=== PATIENT | male | born 1935 | race Caucasian/White ===

== ENCOUNTER 2021-08-18 08:03 | Outpatient (REF) | payer MEDICARE, OTHER, SELFPAY ==
[2021-08-18 11:45] LABS: Alanine Aminotransferase 22 U/L (0-40); Albumin Level 4.3 g/dL (3.5-5.0); Alkaline Phosphatase 57 U/L (39-117); Anion Gap 13 (12-20); Aspartate Amino Transferase 26 U/L (5-37); Bilirubin Total 0.4 mg/dL (0.0-1.0); Blood Urea Nitrogen 18 mg/dL (9-16); Calcium 9.8 mg/dL (8.4-10.2); Carbon Dioxide 28 mmol/L (22-29); Chloride 109 mmol/L (96-108); Cholesterol 174 mg/dL; Estimated Glomerular Filt Rate 56; Glucose Fasting 103 mg/dL (60-99); HDL Cholesterol 62 mg/dL; LDL Cholesterol Calculated 98 mg/dl; Potassium 5.7 mmol/L (3.3-5.1); Sodium 144 mmol/L (135-145); Total Protein 6.7 g/dL (6.5-8.0); Triglycerides 73 mg/dL
[2021-08-20 05:01] LABS: Lyme Abs Screen <0.90 index
== END 2021-08-18 08:04 | disposition home or self-care (01) ==
LOC: HO.HMGCLDS 08:03
PROVIDERS: PCP Internal Medicine; Visit Provider Nurse Practitioner Family
DX: T14.8XXA Other injury of unspecified body region, initial encounter (principal); W57.XXXA Bitten or stung by nonvenomous insect and other nonvenomous arthropods, initial encounter; Z13.220 Encounter for screening for lipoid disorders; Z13.1 Encounter for screening for diabetes mellitus
CPT/HCPCS: 36415; 80053; 80061; 86617; 86618

== ENCOUNTER 2021-08-19 06:17 | Outpatient (REF) | payer MEDICARE, OTHER, SELFPAY ==
[2021-08-19 12:27] LABS: Blood Urea Nitrogen 20 mg/dL (9-16); Estimated Glomerular Filt Rate > 60; Glucose Random 92 mg/dL (60-115)
[2021-08-19 12:38] LABS: Anion Gap 12 (12-20); Carbon Dioxide 26 mmol/L (22-29); Chloride 110 mmol/L (96-108); Potassium 5.9 mmol/L (3.3-5.1); Sodium 142 mmol/L (135-145)
== END 2021-08-19 06:18 | disposition home or self-care (01) ==
LOC: HO.HMGCLDS 06:17
PROVIDERS: PCP Internal Medicine; Visit Provider Internal Medicine
DX: Z13.89 Encounter for screening for other disorder (principal)
CPT/HCPCS: 36415; 80048

== ENCOUNTER 2021-08-19 18:05 | Emergency (ER) | payer MEDICARE, OTHER, SELFPAY ==
[2021-08-19 19:49] VITALS: BP 143/63; PULSE 60; RESP 20; TEMP 36.7; O2SAT 97; BMI 22.4
[2021-08-19 20:27] LABS: MANUAL DIFF FLAG NO
[2021-08-19 20:34] LABS: Basophils Percent Auto 0.6 % (0-2); Eosinophils Absolute Auto 0.3 X10*3/uL (0.0-0.4); Eosinophils Percent Auto 5.8 % (0-4); Hematocrit 41.8 % (42.0-52.0); Hemoglobin 13.9 g/dl (14.0-18.0); Imm Gran Abs Auto 0.01 X10*3/uL (0.00-0.03); Imm Gran Pct Auto 0.2 % (0.0-0.4); Lymphocytes Absolute Auto 1.8 X10*3/uL (1.2-4.9); Lymphocytes Percent Auto 37.6 % (20-40); Mean Corpuscular HGB Conc 33.3 g/dl (31.0-36.0); Mean Corpuscular Hemoglobin 29.7 pg (27.0-33.0); Mean Corpuscular Volume 89.3 fL (80.0-98.0); Mean Platelet Volume 9.1 fL (9.4-12.4); Monocytes Absolute Auto 0.5 X10*3/uL (0.1-1.2); Monocytes Percent Auto 10.7 % (2-11); Neutrophils Absolute Auto 2.2 x10*3/uL (2.0-8.3); Neutrophils Percent Auto 45.1 % (45-73); Platelet Count 211 X10*3/uL (160-400); Red Blood Count 4.68 X10*6/uL (4.60-5.80); Red Cell Distribution Width 13.4 % (11.0-16.0); White Blood Count 4.8 X10*3/uL (4.8-10.8)
[2021-08-19 20:45] LABS: Anion Gap 12 (12-20); Blood Urea Nitrogen 19 mg/dL (9-16); Calcium 9.6 mg/dL (8.4-10.2); Carbon Dioxide 30 mmol/L (22-29); Chloride 108 mmol/L (96-108); Creatinine Clr Calc Pharmacy 42.3; Estimated Glomerular Filt Rate 58; Glucose Random 105 mg/dL (60-115); Sodium 145 mmol/L (135-145)
[2021-08-19 21:44] VITALS: BP 158/73; PULSE 59; RESP 16; TEMP 36.7; O2SAT 97
--- NOTE | 2021-08-19 22:39 | ED.RECABL ---
HPI - Recheck/Abnormal Lab/Rx General Chief Complaint: Recheck/Abnormal Lab/Rx Stated Complaint: Abnormal labs Time Seen by Provider: 08/19/21 22:39 Source: patient and family () Mode of arrival: ambulatory History of Present Illness HPI narrative: 85-year-old male with history BPH, recurrent major depression is presenting for lab values on consecutive days demonstrating potassium level of 5.7 and 5.9 respectively but otherwise completely asymptomatic denying any chest pain, palpitations, muscle twitching, muscle aches. Related Data Home Medications Medication Instructions Recorded Confirmed ibuprofen 400 mg tablet 400 mg PO TID 07/05/20 07/29/21 Previous Rx's Medication Instructions Recorded sertraline 50 mg tablet 50 mg PO DAILY #90 tab 01/17/21 doxycycline hyclate 100 mg tablet 100 mg PO BID 14 Days #28 tab 07/29/21 Allergies Allergy/AdvReac Type Severity Reaction Status Date / Time No Known Allergies Allergy Unverified 07/29/21 13:35 Review of Systems Review of Systems: Pertinent positives and negatives as stated in HPI 10 point review of systems is otherwise negative. PMFSH Past Medical History Medical History (Updated 08/19/21 @ 22:45 by Alyse Clark MD) Anxiety BPH (benign prostatic hyperplasia) History of alcohol abuse Osteoarthritis of right knee Polymyalgia rheumatica Tick bite of back Surgical History H/O arthroscopy of right knee History of hand surgery Hx of cataract surgery Social History Social History Housing: House Alcohol intake: never Patient Tobacco Use Status: Former Tobacco user Advance Directives: No Advance Directives Information Provided: Yes service: Yes Current occupational status: retired Physical Exam Vital Signs: Vital Signs: Last Vital Signs Temp 98.1 F 08/19/21 21:44 Pulse 59 08/19/21 21:44 Resp 16 08/19/21 21:44 BP 158/73 H 08/19/21 21:44 Pulse Ox 97 08/19/21 21:44 BMI result Body Mass Index 22.4 VITAL SIGNS: Reviewed. GENERAL: Well developed, well nourished, in no acute distress. HEAD: Normocephalic/atraumatic EYES: PERRLA, EOMI OROPHARYNX: no oral lesions noted, posterior pharynx clear NECK: Supple, no adenopathy LUNGS: Normal breath sounds. No adventitious sounds or accessory muscle use. SpO2<97> CARDIOVASCULAR: Regular rate and rhythm without noted murmurs, no JVD or lower extremity edema. ABDOMEN: Soft, non-tender, non-distended with bowel sounds. SKIN: Inspection of the skin reveals no rashes NEUROLOGIC: Alert and oriented x 4. Strength and sensation to light touch were grossly intact x 4, no tremor Course Course Course Narrative: This is an 85-year-old male with no hyperkalemia on re-evaluation here in the emergency room. No evidence that patient is symptomatic and patient denies any history concerning for sources of patient's hyperkalemia other than borderline renal function. Patient has no history of any nausea/vomiting/diarrheal episodes and after discussion regarding pursuing EKG although on clinical exam there is no evidence of irregular heartbeat and patient denies any chest pain/palpitations both the patient and his decline EKG at this time. He was otherwise discharged in stable condition and encouraged to follow-up with his primary care provider for further workup as an outpatient. MDM - Recheck/Abnormal Lab/Rx Lab Data Result diagrams: 08/19/21 20:22 08/19/21 20:22 Labs: Lab Results 08/19/21 08/19/21 Range/Units 20:22 20:22 WBC 4.8 (4.8-10.8) X10*3/uL RBC 4.68 (4.60-5.80) X10*6/uL Hgb 13.9 L (14.0-18.0) g/dl Hct 41.8 L (42.0-52.0) % MCV 89.3 (80.0-98.0) fL MCH 29.7 (27.0-33.0) pg MCHC 33.3 (31.0-36.0) g/dl RDW 13.4 (11.0-16.0) % Plt Count 211 (160-400) X10*3/uL MPV 9.1 L (9.4-12.4) fL Immature Gran % (Auto) 0.2 (0.0-0.4) % Neut % (Auto) 45.1 (45-73) % Lymph % (Auto) 37.6 (20-40) % [place] % (Auto) 10.7 (2-11) % Eos % (Auto) 5.8 H (0-4) % Baso % (Auto) 0.6 (0-2) % Lymph # (Auto) 1.8 (1.2-4.9) X10*3/uL [place] # (Auto) 0.5 (0.1-1.2) X10*3/uL Eos # (Auto) 0.3 (0.0-0.4) X10*3/uL Baso # (Auto) 0.0 (0.0-0.2) X10*3/uL Abs Immat Gran (auto) 0.01 (0.00-0.03) X10*3/uL Absolute Neuts (auto) 2.2 (2.0-8.3) x10*3/uL Absolute Nucleated RBC 0.000 (0.0-0.012) X10*3/uL Nucleated RBC % (auto) 0.0 (0.0-0.2) /100WBC Sodium 145 (135-145) mmol/L Potassium 5.0 (3.3-5.1) mmol/L Chloride 108 (96-108) mmol/L Carbon Dioxide 30 H (22-29) mmol/L Anion Gap 12 (12-20) BUN 19 H (9-16) mg/dL Creatinine 1.19 (0.5-1.4) mg/dL Estim Creat Clear Calc 42.3 Estimated GFR 58 Random Glucose 105 (60-115) mg/dL Calcium 9.6 D (8.4-10.2) mg/dL Discharge Plan Discharge Clinical Impression: History of hyperkalemia Patient Disposition: Home, Self-Care Instructions: Hyperkalemia (ED) Additional Instructions: 1. Resume all home medications as prescribed. 2. Follow-up with your primary care provider on Sunday morning to discuss further outpatient workup and management. Return to the ER for any worsening of symptoms. Prescriptions: No Action sertraline 50 mg tablet 50 mg PO DAILY Qty: 90 RF: 2 ibuprofen 400 mg tablet 400 mg PO TID RF: 0 doxycycline hyclate 100 mg tablet 100 mg PO BID 14 Days Qty: 28 RF: 0 Referrals: Po,Slick Chandler MD [Primary Care Provider] - 2 days (Re-evaluation and further outpatient workup and evaluation for patient's transient episodes hyper kalemia but is otherwise asymptomatic.)
== END 2021-08-19 22:55 | disposition home or self-care (01) ==
PROVIDERS: Emergency Provider Student in an Organized Health Care Education/Training Program; PCP Internal Medicine
DX: R79.89 Other specified abnormal findings of blood chemistry (principal); F33.1 Major depressive disorder, recurrent, moderate; Z87.891 Personal history of nicotine dependence; Z79.899 Other long term (current) drug therapy
CPT/HCPCS: 36415; 80048; 85025; 99283

== ENCOUNTER 2021-08-26 06:37 | Outpatient (REF) | payer MEDICARE, OTHER, SELFPAY ==
[2021-08-26 11:43] LABS: Anion Gap 10 (12-20); Blood Urea Nitrogen 24 mg/dL (9-16); Calcium 9.4 mg/dL (8.4-10.2); Carbon Dioxide 28 mmol/L (22-29); Chloride 109 mmol/L (96-108); Estimated Glomerular Filt Rate 58; Glucose Random 95 mg/dL (60-115); Potassium 4.2 mmol/L (3.3-5.1); Sodium 143 mmol/L (135-145)
== END 2021-08-26 06:38 | disposition home or self-care (01) ==
LOC: HO.HMGCLDS 06:37
PROVIDERS: PCP Internal Medicine; Visit Provider Internal Medicine
DX: E87.5 Hyperkalemia (principal)
CPT/HCPCS: 36415; 80048

== ENCOUNTER 2022-08-01 06:02 | Outpatient (REF) | payer MEDICARE, OTHER, SELFPAY ==
[2022-08-01 11:45] LABS: MANUAL DIFF FLAG NO
[2022-08-01 11:53] LABS: Basophils Percent Auto 0.8 % (0-2); Eosinophils Absolute Auto 0.2 X10*3/uL (0.0-0.4); Eosinophils Percent Auto 3.7 % (0-4); Hematocrit 43.1 % (42.0-52.0); Imm Gran Abs Auto 0.01 X10*3/uL (0.00-0.03); Imm Gran Pct Auto 0.2 % (0.0-0.4); Immature Retic Fraction 8.7 % (2.3-13.4); Lymphocytes Absolute Auto 1.6 X10*3/uL (1.2-4.9); Lymphocytes Percent Auto 31.1 % (20-40); Mean Corpuscular HGB Conc 32.5 g/dl (31.0-36.0); Mean Corpuscular Hemoglobin 29.2 pg (27.0-33.0); Mean Corpuscular Volume 89.8 fL (80.0-98.0); Mean Platelet Volume 9.1 fL (9.4-12.4); Monocytes Absolute Auto 0.5 X10*3/uL (0.1-1.2); Monocytes Percent Auto 10.1 % (2-11); Neutrophils Absolute Auto 2.8 x10*3/uL (2.0-8.3); Neutrophils Percent Auto 54.1 % (45-73); Platelet Count 222 X10*3/uL (160-400); Red Cell Distribution Width 13.3 % (11.0-16.0); Reticulocyte Percent 1.3 % (0.5-1.8); Reticulocytes Absolute 0.064 X10*6/uL (0.026-0.095); White Blood Count 5.2 X10*3/uL (4.8-10.8)
[2022-08-01 12:59] LABS: Folate 15.5 ng/mL (> or = 4.0); Vitamin B12 434 pg/mL (200-900)
[2022-08-01 13:06] LABS: Alanine Aminotransferase 15 U/L (0-40); Albumin Level 4.1 g/dL (3.5-5.0); Alkaline Phosphatase 53 U/L (39-117); Anion Gap 12 (12-20); Aspartate Amino Transferase 20 U/L (5-37); Bilirubin Total 0.5 mg/dL (0.0-1.0); Blood Urea Nitrogen 22 mg/dL (9-16); Calcium 9.4 mg/dL (8.4-10.2); Carbon Dioxide 28 mmol/L (22-29); Chloride 107 mmol/L (96-108); Cholesterol 177 mg/dL; Estimated Glomerular Filt Rate 55; Ferritin 140 ng/mL (20-250); Glucose Random 92 mg/dL (60-115); HDL Cholesterol 56 mg/dL; Iron 53 mcg/dL (45-160); LDL Cholesterol Calculated 108 mg/dl; Percent Iron Saturation 18 % (15-50); Potassium 4.5 mmol/L (3.3-5.1); Sodium 142 mmol/L (135-145); Thyroid Stimulating Hormone 1.99 uIU/mL (0.32-4.0); Total Iron Binding Capacity 292 mcg/dL (228-428); Total Protein 6.5 g/dL (6.5-8.0); Triglycerides 66 mg/dL; Unsaturated Iron Binding 239 ug/dL
== END 2022-08-01 06:03 | disposition home or self-care (01) ==
LOC: HO.HMGCLDS 06:02
PROVIDERS: PCP Internal Medicine; Visit Provider Internal Medicine
DX: F33.9 Major depressive disorder, recurrent, unspecified (principal); E78.00 Pure hypercholesterolemia, unspecified
CPT/HCPCS: 36415; 80053; 80061; 82607; 82728; 82746; 83540; 84439; 84443; 85025; 85045

== ENCOUNTER 2023-01-19 06:04 | Outpatient (REF) | payer MEDICARE, OTHER, SELFPAY ==
[2023-01-19 11:56] LABS: Anion Gap 11 (12-20); Blood Urea Nitrogen 23 mg/dL (9-16); Calcium 9.4 mg/dL (8.4-10.2); Carbon Dioxide 29 mmol/L (22-29); Chloride 108 mmol/L (96-108); Estimated Glomerular Filt Rate 60; Glucose Fasting 91 mg/dL (60-99); Sodium 143 mmol/L (135-145)
== END 2023-01-19 06:05 | disposition home or self-care (01) ==
LOC: HO.HMGCLDS 06:04
PROVIDERS: PCP Internal Medicine; Visit Provider Nurse Practitioner Family
DX: Z13.1 Encounter for screening for diabetes mellitus (principal)
CPT/HCPCS: 36415; 80048

== ENCOUNTER 2023-07-19 08:21 | Outpatient (AMB) | payer MEDICARE, OTHER, SELFPAY ==
[2023-07-19 08:23] VITALS: BP 130/78; PULSE 64; O2SAT 96; BMI 23.5
--- NOTE | 2023-07-19 08:23 | A.OFFPC_ITS ---
Vital Signs 07/19/23 08:23 Height 5 ft 7 in Weight 150 lb BMI 23.5 BP 130/78 Blood Pressure Location Lt brachial Position Sitting Pulse 64 Pulse Source Pulse Oximeter Pulse Oximetry (%) 96 Oxygen Delivery Method Room Air Intake Visit Reasons: hypothyroid Allergies No Known Allergies Allergy (Verified 07/19/23 08:24) Tobacco use date assessed: 07/19/23 Fall risk assessment: No Falls in past year Last assessed Fall Risk: 07/19/23 Dental Screening Dental Screen Date: 07/19/23 Did you have a dental visit in the last 12 months?: Yes Did you have a dental problem in the last 6 months where you did not have access to dental care?: No Was dental information given to patient?: Patient has dentist HPI hypothyroid HPI Details 87-year-old male with a history of BPH a nd major depression last seen in July 2022 coming in for follow-up. Review of the notes has seen orthopedics in June 2023 for right knee MCL sprain status post total knee arthroplasty 2015 few months causing pain medial aspect of the denies any injury diagnosis of MCL instability option of bracing physical therapy or anti- inflammatory semi rigid/rigid orthosis advised. Patient also follows up with Dermatology actinic keratosis.. Patient did see the nurse practitioner in January 2023 for annual well visit had otitis media treated with Augmentin [facility] Medical History (Updated 07/19/23 @ 08:43 by Slick Cassidy MD) Polymyalgia rheumatica Osteoarthritis of right knee History of alcohol abuse BPH (benign prostatic hyperplasia) Anxiety Tick bite of back Surgical History History of colonoscopy History of hand surgery Hx of cataract surgery H/O arthroscopy of right knee Social History Housing: House Alcohol intake: never Patient Tobacco Use Status: Former Tobacco user Tobacco use type: Cigarette e-Cigarette/Vaping Use: Never Used Second Hand Smoke Exposure: No service: Yes Current occupational status: retired Cognitive needs: No Hearing needs: No Vision needs: Yes Questionnaire PHQ-9 Over the last 2 weeks, how often have you been bothered by any of the following problems? 1. Little interest or pleasure in doing things: not at all 2. Feeling down, depressed, or hopeless: not at all 3. Trouble falling or staying asleep, or sleeping too much: not at all 4. Feeling tired or having little energy: not at all 5. Poor appetite or overeating: not at all 6. Feeling bad about yourself - or that you are a failure or have let yourself or your family down: not at all 7. Trouble concentrating on things, such as reading the newspaper or watching television: not at all 8. Moving or speaking so slowly that other people could have noticed. Or the opposite - being so fidgety or restless that you have been moving around a lot more than usual: not at all 9. Thoughts that you would be better off or of hurting yourself in some way: not at all Total score: 0 Depression Screening Interpretation: Negative Depression Screening Done: Yes 95743 - PHQ-9 Billing: Yes Source: Developed by Drs. Aki Nash, Lazara Arellano, Liu Lilly and colleagues, with an educational isabel from [employer]. Thrive Questionnaire Date Thrive assessed: 07/19/23 I am a: Patient What is your living situation today?: I have a steady place to live Within the past 12 months, did the food you bought not last and you didn't have the money to get more?: Never true Within the past 12 months, did you worry whether your food would run out before you got money to buy more?: Never true Do you have trouble paying for medicines?: No Do you have trouble getting transportation to medical appointments?: No Do you have trouble paying your heating and electricity bill?: No Do you have trouble taking care of your child, family member or friend?: No Do you have trouble with day-to-day activities such as bathing, preparing meals, shopping, managing finances, etc.?: No Are you currently unemployed and looking for a job?: No Are you interested in more education?: No Currently or been in a relationship where the following occur: no concerns reported AUDIT C Alcohol Use Questionnaire (AUDIT-C) 1. How often do you have a drink containing alcohol?: Never 3. How often do you have six or more drinks on one occasion?: Never Total Score: 0 Score Reviewed/Action Taken: No LENA-7 AMB Questionnaire LENA-7 Date LENA - 7 assessed: 01/16/23 Source: Developed by Drs. Aki Nash, Lazara Arellano, Liu Lilly and colleagues, with an educational isabel from [employer]. Physical exam (Primary Care) Vital Signs: Last Vital Signs Pulse 64 07/19/23 08:23 BP 130/78 07/19/23 08:23 Pulse Ox 96 07/19/23 08:23 Oxygen Delivery Method Room Air 07/19/23 08:23 BMI result Body Mass Index 23.5 Tobacco/Smoking Status: Tobacco use Status Tobacco use date assessed 07/19/23 07/19/23 08:28 Patient Tobacco Use Status Former Tobacco user 07/19/23 08:28 Tobacco use type Cigarette 07/19/23 08:28 e-Cigarette/Vaping Use Never Used 07/19/23 08:28 PHQ-9: PHQ-9 Score PHQ-9: Total score 0 07/19/23 08:28 Depression Screening Interpretation: Negative Thrive Assessment: Date of Thrive Assessment Date Thrive assessed 07/19/23 07/19/23 08:28 Currently or been in a relationship where the following occur: no concerns reported Const General: alert; No acute distress Eyes Conjunctivae: conjunctivae normal Resp Auscultation: clear to auscultation bilaterally Cardio Rate: regular rate Rhythm: regular rhythm GI Inspection: Yes normal to inspection Extrem General: Yes normal to inspection and No edema Assessment and Plan Assessment & Plan (1) Recurrent major depression: Comment: decline counselling 07/2022 Code(s): F33.9 - Major depressive disorder, recurrent, unspecified Plan: Continue with present medication (2) BPH (benign prostatic hyperplasia): Code(s): N40.0 - Benign prostatic hyperplasia without lower urinary tract symptoms Plan: Stable (3) Right knee pain: Code(s): M25.561 - Pain in right knee Plan: Patient follows up with orthopedics and brace as well as exercises advised (4) Actinic keratosis: Code(s): L57.0 - Actinic keratosis Plan: Patient follows up with Dermatology and had nitrogen treatment Orders: Orders Complete Blood Count Auto Diff Today F33.9 - Major depressive disorder, recurren t, unspecified Comprehensive Met. Panel Today F33.9 - Major depressive disorder, recurrent, unspecified Lipid Panel Today E78.00 - Pure hypercholesterolemia, unspecified, F33.9 - Major depressive disorder, recurrent, unspecified Free T4 (Free Thyroxine) Today F33.9 - Major depressive disorder, recurrent, unspecified Thyroid Stimulating Hormone Today F33.9 - Major depressive disorder, recurrent, unspecified Vitamin B12 and Folate Today F33.9 - Major depressive disorder, recurrent, unspecified Coding Level of Care Code Est Pt Level 4 (20888) Diagnoses Recurrent major depression F33.9 BPH (benign prostatic hyperplasia) N40.0 Right knee pain M25.561 Actinic keratosis L57.0
== END 2023-07-19 08:54 | disposition home or self-care (01) ==
LOC: HO.HMGH 08:21
PROVIDERS: PCP Internal Medicine; Visit Provider Internal Medicine
DX: F33.9 Major depressive disorder, recurrent, unspecified (principal); N40.0 Benign prostatic hyperplasia without lower urinary tract symptoms; M25.561 Pain in right knee; L57.0 Actinic keratosis
CPT/HCPCS: 99214

== ENCOUNTER 2023-07-20 06:07 | Outpatient (REF) | payer MEDICARE, OTHER, SELFPAY ==
[2023-07-20 11:27] LABS: MANUAL DIFF FLAG NO
[2023-07-20 11:39] LABS: Basophils Percent Auto 0.9 % (0-2); Eosinophils Absolute Auto 0.2 X10*3/uL (0.0-0.4); Eosinophils Percent Auto 4.3 % (0-4); Hematocrit 43.8 % (42.0-52.0); Hemoglobin 14.2 g/dl (14.0-18.0); Imm Gran Abs Auto 0.02 X10*3/uL (0.00-0.03); Imm Gran Pct Auto 0.4 % (0.0-0.4); Lymphocytes Absolute Auto 1.6 X10*3/uL (1.2-4.9); Lymphocytes Percent Auto 35.2 % (20-40); Mean Corpuscular HGB Conc 32.4 g/dl (31.0-36.0); Mean Corpuscular Hemoglobin 28.8 pg (27.0-33.0); Mean Corpuscular Volume 88.8 fL (80.0-98.0); Mean Platelet Volume 9.3 fL (9.4-12.4); Monocytes Absolute Auto 0.5 X10*3/uL (0.1-1.2); Monocytes Percent Auto 10.1 % (2-11); Neutrophils Absolute Auto 2.3 x10*3/uL (2.0-8.3); Neutrophils Percent Auto 49.1 % (45-73); Platelet Count 206 X10*3/uL (160-400); Red Blood Count 4.93 X10*6/uL (4.60-5.80); Red Cell Distribution Width 13.6 % (11.0-16.0); White Blood Count 4.7 X10*3/uL (4.8-10.8)
[2023-07-20 12:30] LABS: Alanine Aminotransferase 17 U/L (0-40); Albumin Level 4.1 g/dL (3.5-5.0); Alkaline Phosphatase 60 U/L (39-117); Anion Gap 9 (12-20); Aspartate Amino Transferase 22 U/L (5-37); Bilirubin Total 0.3 mg/dL (0.0-1.0); Blood Urea Nitrogen 19 mg/dL (9-16); Calcium 8.9 mg/dL (8.4-10.2); Carbon Dioxide 28 mmol/L (22-29); Chloride 109 mmol/L (96-108); Cholesterol 160 mg/dL (<200); Estimated Glomerular Filt Rate > 60; Free T4 (Free Thyroxine) 0.78 ng/dL (0.71-1.85); Glucose Random 93 mg/dL (60-115); HDL Cholesterol 59 mg/dL (>40); LDL Cholesterol Calculated 91 mg/dL (<100); Potassium 4.3 mmol/L (3.3-5.1); Sodium 142 mmol/L (135-145); Thyroid Stimulating Hormone 2.06 uIU/mL (0.32-4.0); Total Protein 6.6 g/dL (6.5-8.0); Triglycerides 53 mg/dL (<150)
[2023-07-20 12:34] LABS: Folate 13.2 ng/mL (> or = 4.0); Vitamin B12 482 pg/mL (200-900)
== END 2023-07-20 06:08 | disposition home or self-care (01) ==
LOC: HO.HMGCLDS 06:07
PROVIDERS: PCP Internal Medicine; Visit Provider Internal Medicine
DX: F33.9 Major depressive disorder, recurrent, unspecified (principal); E78.00 Pure hypercholesterolemia, unspecified
CPT/HCPCS: 36415; 80053; 80061; 82607; 82746; 84439; 84443; 85025

== ENCOUNTER 2024-01-21 10:13 | Outpatient (AMB) | payer MEDICARE, OTHER, SELFPAY ==
[2024-01-21 10:14] VITALS: BP 140/72; PULSE 77; O2SAT 97; BMI 22.7
--- NOTE | 2024-01-21 10:14 | AM.OFFVISMDC ---
Intake Vital Signs 01/21/24 10:14 01/21/24 10:31 Height 5 ft 7 in Weight 145 lb BMI 22.7 BP 140/72 H 134/60 Blood Pressure Location Lt brachial Lt brachial Position Sitting Sitting Pulse 77 Pulse Source Pulse Oximeter Pulse Oximetry (%) 97 Oxygen Delivery Method Room Air Intake Visit Reasons: SWV [id number], Trigger Finger Allergies No Known Allergies Allergy (Verified 01/21/24 10:14) Medication List - Last Reconciled 01/21/24 by Slick Cassidy MD aspirin 81 mg PO DAILY sertraline 50 mg PO DAILY HPI SWV [id number] HPI Details 88-year-old male with a history of recurrent major depression BPH coming in for an annual well visit. Last seen in July 2023. [facility] Medical History (Updated 01/21/24 @ 10:27 by Slick Cassidy MD) Polymyalgia rheumatica Osteoarthritis of right knee History of alcohol abuse BPH (benign prostatic hyperplasia) Anxiety Tick bite of back Surgical History History of colonoscopy History of hand surgery Hx of cataract surgery H/O arthroscopy of right knee Social History Housing: House Alcohol intake: never Patient Tobacco Use Status: Former Tobacco user Tobacco use type: Cigarette e-Cigarette/Vaping Use: Never Used Second Hand Smoke Exposure: No service: Yes Current occupational status: retired Cognitive needs: No Hearing needs: No Vision needs: Yes Questionnaire Medicare Wellness Checkup What is your age?: 80 or older What gender do you identify with?: male During the past 4 weeks, how much have you been bothered by emotional problems such as feeling anxious, depressed, irritable, sad or downhearted, and blue?: not at all During the past 4 weeks, has your physical & emotional health limited your social activities with family, friends, neighbors, or groups?: not at all During the past 4 weeks, how much bodily pain have you generally had?: no pain During the past 4 weeks, was someone available to help you if you needed & wanted help?: yes, as much as I wanted During the past 4 weeks, what was the hardest physical activity you could do for at least 2 minutes?: very heavy Can you get to places out of walking distance without help? (For eg., can you travel alone on buses, taxis or drive your car?): Yes Can you go shopping for groceries or clothes without someone's help?: Yes Can you prepare your own meals?: Yes Can you do your housework without help?: Yes Because of any health problems, do you need the help of another person with your personal care needs such as eating, bathing, dressing or getting around the house?: No Can you handle your own money without help?: Yes During the past 4 weeks, how would you rate your health in general?: very good During the past 4 weeks how have things been going for you?: very well; could hardly better Are you having difficulties driving your car?: no Do you always fasten your seat belt when you are in a car?: yes, usually During past 4 weeks, have you been bothered by the following: never: Sexual problems?, Trouble eating well?, Teeth or denture problems?, Problems using the telephone? and Tiredness or fatigue? and seldom: Falling or dizzy when standing up Have you fallen 2 or more times in the past year?: No Are you afraid of falling?: No Are you a smoker?: no During the past 4 weeks, how many drinks of wine, beer, or other alcoholic beverages did you have?: no alcohol at all Do you exercise for about 20 minutes 3 or more times a week?: yes, most of the time Have you been given information to help with the following?: no: Hazards in your house that might hurt you? and no: Keeping track of your medications? How often do you have trouble taking medicines the way you have been told to take them?: I always take medicine as prescribed How confident are you that you can control & manage most of your health problems?: very confident What is your race?: White PHQ-9 Over the last 2 weeks, how often have you been bothered by any of the following problems? 1. Little interest or pleasure in doing things: not at all 2. Feeling down, depressed, or hopeless: not at all 3. Trouble falling or staying asleep, or sleeping too much: not at all 4. Feeling tired or having little energy: not at all 5. Poor appetite or overeating: not at all 6. Feeling bad about yourself - or that you are a failure or have let yourself or your family down: not at all 7. Trouble concentrating on things, such as reading the newspaper or watching television: not at all 8. Moving or speaking so slowly that other people could have noticed. Or the opposite - being so fidgety or restless that you have been moving around a lot more than usual: not at all 9. Thoughts that you would be better off or of hurting yourself in some way: not at all Total score: 0 Depression Screening Interpretation: Negative Depression Screening Done: Yes 69395 - PHQ-9 Billing: Yes Source: Developed by Drs. Aki Nash, Lazara Arellano, Liu Lilly and colleagues, with an educational isabel from [employer]. Thrive Questionnaire Date Thrive assessed: 01/21/24 I am a: Patient What is your living situation today?: I have a steady place to live Within the past 12 months, did the food you bought not last and you didn't have the money to get more?: Never true Within the past 12 months, did you worry whether your food would run out before you got money to buy more?: Never true Do you have trouble paying for medicines?: No Do you have trouble getting transportation to medical appointments?: No Do you have trouble paying your heating and electricity bill?: No Do you have trouble taking care of your child, family member or friend?: No Do you have trouble with day-to-day activities such as bathing, preparing meals, shopping, managing finances, etc.?: No Are you currently unemployed and looking for a job?: No Are you interested in more education?: No Currently or been in a relationship where the following occur: no concerns reported THRIVE Score: 0 LENA-7 AMB Questionnaire LENA-7 Date LENA - 7 assessed: 01/21/24 Feeling nervous, anxious, or on edge: 0 = Not at all Not being able to stop or control worryin = Not at all Worrying too much about different things: 0 = Not at all Trouble relaxin = Not at all Being so restless that it is hard to sit still: 0 = Not at all Becoming easily annoyed or irritable: 0 = Not at all Feeling afraid as if something awful might happen: 0 = Not at all Total LENA-7 score (0-4 normal; 5-9 mild; 10-14 moderate; 15-21 severe): 0 Source: Developed by Drs. Aki Nash, Lazara Arellano, Liu Lilly and colleagues, with an educational isabel from [employer]. Review of Systems Const Denies poor appetite and Denies weakness Eyes Denies no additional complaints ENT Reports Normal hearing present, Denies dizziness, Denies nasal congestion, Denies tinnitus and Denies sore throat Card Denies chest pain, Denies syncope, Denies rapid heart rate and Denies dyspnea Resp Denies cough and Denies dyspnea GI Denies change in stool character, Reports constipation, Denies diarrhea, Denies nausea and Denies vomiting Denies dysuria and Denies urinary frequency Neuro Reports Normal hearing present, Denies confusion, Denies dizziness, Denies syncope and Denies weakness Psych Denies confusion Physical Exam Vital Signs: Last Vital Signs Pulse 77 01/21/24 10:14 BP 134/60 01/21/24 10:31 Pulse Ox 97 01/21/24 10:14 Oxygen Delivery Method Room Air 01/21/24 10:14 BMI result Body Mass Index 22.7 Const General: No confusion Orientation/consciousness: No confusion HEENT Other: mild eimpacted cerumen Head: Yes normocephalic Ears: external ears normal Face and sinus: Yes normal facial exam Mouth: moist mucous membranes Throat: Yes tonsils normal Eyes Conjunctivae: conjunctivae normal Pupils: Equal, round and reactive pupils present and Pupil accommodation reflex normal Direct Ophthalmoscopy: normal light reflex Neck Neck: No lymphadenopathy Thyroid: Thyroid normal Chest Chest palpation & inspection: normal inspection of the chest Resp Effort & Inspection: normal respiratory effort and no audible wheezes Auscultation: clear to auscultation bilaterally, no crackles, no wheezes and lung sounds not diminished Cardio Rate: regular rate Rhythm: regular rhythm Peripheral pulses: radial pulses present and dorsalis pedis present GI Other: guaiac negative prostate mild enlarged Palpation (GI): no masses Auscultation: normal bowel sounds and normoactive bowel sounds Male General Exam: Yes normal external exam Skin General skin exam: no rashes or lesions noted Rashes: no rashes Neuro General: No confusion Cranial nerves: Yes Equal, round and reactive pupils present and Yes Normal hearing present Cognition (Neuro): normal cognition Gait exam (Neuro): Normal gait present Motor exam (neuro): 5/5 motor strength present throughout Deep tendon reflexes (DTR's): Right brachioradialis reflex intensity grade: 2+, Left brachioradialis reflex intensity grade: 2+, Right patellar reflex intensity grade: 2+ and Left patellar reflex intensity grade: 2+ Extrem General: No edema Immunizations tetanus-diphtheria toxoids-Td 2 Lf unit-2 Lf unit/0.5 mL IM suspension Performing Provider: Slick Cassidy MD Performing [facility] [place] [facility] Administered by: EDI Booth on 01/21/24 10:54 Dose Route Admin Location Dispensed Lot Number Expiration Date [employer] 0.5 mL IM Left Deltoid 0.5 mL [id number] 10/20/24 [address]-1 [employer] VIS Given Date VIS Provided VIS Publication Date 01/21/24 Single Vaccine 21 Eligibility Eligibility Date Funding Source Not [facility] Eligible 01/21/24 [facility] Assessment & Plan Assessment & Plan (1) Medicare annual wellness visit, subsequent: Code(s): Z00.00 - Encounter for general adult medical examination without abnormal findings Plan: Keep well hydrated, eat healthy, keep active and have adequate sleep (2) Recurrent major depression: Comment: decline counselling 07/2022 Code(s): F33.9 - Major depressive disorder, recurrent, unspecified Qualifiers: Active/Remission status: in partial remission Qualified Code(s): F33.41 - Major depressive disorder, recurrent, in partial remission Plan: Continue with present medication. (3) BPH (benign prostatic hyperplasia): Code(s): N40.0 - Benign prostatic hyperplasia without lower urinary tract symptoms Qualifiers: Lower urinary tract symptom presence: unspecified whether lower urinary tract symptoms present Qualified Code(s): N40.0 - Benign prostatic hyperplasia without lower urinary tract symptoms Plan: Stable Orders: Orders Complete Blood Count Auto Diff 6 Months F3.41 - Major depressive disorder, recurrent, in partial remission Comprehensive Met. Panel 6 Months F3.41 - Major depressive disorder, recurrent, in partial remission Lipid Panel 6 Months E78.00 - Pure hypercholesterolemia, unspecified, F33.41 - Major depressive disorder, recurrent, in partial remission Free T4 (Free Thyroxine) 6 Months F33.41 - Major depressive disorder, recurrent, in partial remission Thyroid Stimulating Hormone 6 Months F33.41 - Major depressive disorder, recurrent, in partial remission Vitamin B12 and Folate 6 Months F33.41 - Major depressive disorder, recurrent, in partial remission Td State Immunization Today Z23 - Encounter for immunization Medications: New tetanus-diphtheria toxoids-Td 0.5 mL IM ONCE 0.5 mL 0RF Z23 - Encounter for immunization Quality Reporting (2019) Depression/Bipolar (159/160/161/177) PHQ-9: Total score: 0 Coding Level of Care Code Medicare Subsequent (G0439) Diagnoses Medicare annual wellness visit, subsequent Z00.00 Recurrent major depressive disorder, in partial remission F33.41 Active/Remission status: in partial remission Benign prostatic hyperplasia, unspecified whether lower urinary tract symptoms present N40.0 Lower urinary tract symptom presence: unspecified whether lower urinary tract symptoms present
[2024-01-21 10:31] VITALS: BP 134/60
== END 2024-01-21 10:57 | disposition home or self-care (01) ==
PROVIDERS: Visit Provider Internal Medicine
DX: Z00.00 Encounter for general adult medical examination without abnormal findings (principal); F33.41 Major depressive disorder, recurrent, in partial remission; N40.0 Benign prostatic hyperplasia without lower urinary tract symptoms; Z23 Encounter for immunization
CPT/HCPCS: 90471; 90714; G0439

== ENCOUNTER 2024-02-06 06:04 | Outpatient (REF) | payer MEDICARE, OTHER, SELFPAY ==
[2024-02-06 10:42] LABS: MANUAL DIFF FLAG NO
[2024-02-06 10:50] LABS: Basophils Absolute Auto 0.1 X10*3/uL (0.0-0.2); Basophils Percent Auto 1.3 % (0-2); Eosinophils Absolute Auto 0.2 X10*3/uL (0.0-0.4); Hematocrit 43.8 % (42.0-52.0); Hemoglobin 14.4 g/dl (14.0-18.0); Imm Gran Abs Auto 0.02 X10*3/uL (0.00-0.03); Imm Gran Pct Auto 0.4 % (0.0-0.4); Lymphocytes Absolute Auto 1.6 X10*3/uL (1.2-4.9); Lymphocytes Percent Auto 33.5 % (20-40); Mean Corpuscular HGB Conc 32.9 g/dl (31.0-36.0); Mean Corpuscular Hemoglobin 29.4 pg (27.0-33.0); Mean Corpuscular Volume 89.4 fL (80.0-98.0); Mean Platelet Volume 9.2 fL (9.4-12.4); Monocytes Absolute Auto 0.5 X10*3/uL (0.1-1.2); Monocytes Percent Auto 9.4 % (2-11); Neutrophils Absolute Auto 2.4 x10*3/uL (2.0-8.3); Neutrophils Percent Auto 50.4 % (45-73); Platelet Count 245 X10*3/uL (160-400); Red Cell Distribution Width 13.4 % (11.0-16.0); White Blood Count 4.8 X10*3/uL (4.8-10.8)
[2024-02-06 11:37] LABS: Alanine Aminotransferase 11 U/L (0-40); Alkaline Phosphatase 56 U/L (39-117); Anion Gap 9 (12-20); Aspartate Amino Transferase 17 U/L (5-37); Bilirubin Total 0.3 mg/dL (0.0-1.0); Blood Urea Nitrogen 17 mg/dL (9-16); Calcium 9.3 mg/dL (8.4-10.2); Carbon Dioxide 26 mmol/L (22-29); Chloride 111 mmol/L (96-108); Cholesterol 150 mg/dL (<200); Estimated Glomerular Filt Rate > 60; Free T4 (Free Thyroxine) 0.78 ng/dL (0.71-1.85); Glucose Random 95 mg/dL (60-115); HDL Cholesterol 52 mg/dL (>40); LDL Cholesterol Calculated 84 mg/dL (<100); Potassium 4.3 mmol/L (3.3-5.1); Sodium 142 mmol/L (135-145); Thyroid Stimulating Hormone 1.54 uIU/mL (0.32-4.0); Total Protein 6.7 g/dL (6.5-8.0); Triglycerides 72 mg/dL (<150)
[2024-02-06 11:41] LABS: Folate 12.6 ng/mL (> or = 4.0); Vitamin B12 480 pg/mL (200-900)
== END 2024-02-06 06:05 | disposition home or self-care (01) ==
LOC: HO.HMGCLDS 06:04
PROVIDERS: PCP Internal Medicine; Visit Provider Internal Medicine
DX: F33.41 Major depressive disorder, recurrent, in partial remission (principal); E78.00 Pure hypercholesterolemia, unspecified
CPT/HCPCS: 36415; 80053; 80061; 82607; 82746; 84439; 84443; 85025

== ENCOUNTER 2024-09-08 14:50 | Emergency (ER) | payer MEDICARE, OTHER, SELFPAY ==
--- NOTE | ~2024-09-08 | XR_ITS ---
EXAMINATION: Bilateral hand 3 views each. CLINICAL INDICATION: Fall. Pain. COMPARISON: Right hand/wrist 02/05/2020. FINDINGS: Right hand: There is loss of PIP and DIP joint space with periarticular spurring. No visible fracture, dislocation or subluxation seen. Also visualizes loss of first carpometacarpal joint space. There is negative ulnar variance. No soft tissue swelling seen. Left hand: There is loss of PIP and DIP joint space with periarticular spurring. No visible acute fracture, dislocation or subluxation seen. There is calcification of triangle fibrocartilage with negative ulnar variance. XR/XR hand RT min 3V IMPRESSION: No acute fracture, dislocation or subluxation.. 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
--- NOTE | ~2024-09-08 | XR_ITS ---
EXAMINATION: Bilateral hand 3 views each. CLINICAL INDICATION: Fall. Pain. COMPARISON: Right hand/wrist 02/05/2020. FINDINGS: Right hand: There is loss of PIP and DIP joint space with periarticular spurring. No visible fracture, dislocation or subluxation seen. Also visualizes loss of first carpometacarpal joint space. There is negative ulnar variance. No soft tissue swelling seen. Left hand: There is loss of PIP and DIP joint space with periarticular spurring. No visible acute fracture, dislocation or subluxation seen. There is calcification of triangle fibrocartilage with negative ulnar variance. XR/XR hand LT min 3V IMPRESSION: No acute fracture, dislocation or subluxation.. 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
[2024-09-08 15:16] VITALS: BP 149/72; BP 150/80; PULSE 58; PULSE 75; RESP 14; TEMP 36.7; O2SAT 98; BMI 23.9
--- NOTE | 2024-09-08 15:59 | ED.GENADULT ---
HPI - General Adult General Chief complaint: Wound/Laceration Stated complaint: FALL,MARYJANE HAND LACS,BLEEDING CONTROLLED PER EMS Time Seen by Provider: 09/08/24 15:59 History of Present Illness ED Provider: Keyona LORENZO narrative: The patient is an 89-year-old male who fell in his home. He tripped on a toy that was left on the floor. He fell forwards and hit his hands on a table. He sustained skin injuries to both hands. He had bleeding from multiple small wounds on both hands and could not stop the bleeding at home. His called 911 and he was brought to the hospital. He did not hit his head. He has no sense of a head injury. No headache. No neck pain or pain with moving his neck. No chest pain or shortness of breath. Related Data Home Medications ?Medication ?Instructions ?Recorded ?Confirmed aspirin 81 mg tablet,delayed 81 mg PO DAILY 07/31/22 01/21/24 release Previous Rx's ?Medication ?Instructions ?Recorded sertraline 50 mg tablet 50 mg PO DAILY #90 tabs 07/21/24 Allergies Allergy/AdvReac Type Severity Reaction Status Date / Time No Known Allergies Allergy Verified 09/08/24 15:18 [facility] Past Medical History Medical History (Updated 09/09/24 @ 00:00 by Ronen Rodriguez) Polymyalgia rheumatica Osteoarthritis of right knee History of alcohol abuse BPH (benign prostatic hyperplasia) Anxiety Tick bite of back Surgical History History of colonoscopy History of hand surgery Hx of cataract surgery H/O arthroscopy of right knee Social History Social History Housing: House Alcohol intake: never Patient Tobacco Use Status: Former Tobacco user Tobacco use type: Cigarette Smoked in Last 30 Days: No e-Cigarette/Vaping Use: Never Used Second Hand Smoke Exposure: No Use of substances other than those prescribed or required for medical reasons: No Advance Directives: No Advance Directives Information Provided: No Do you have a plan to hurt others: No Plan service: Yes Current occupational status: retired Cognitive needs: No Hearing needs: No Vision needs: Yes Physical Exam ED Vital Signs: Vital Signs - 24 hr 09/08/24 18:38 09/08/24 19:14 Temperature 98.3 F 98.2 F Pulse Rate 61 60 Respiratory Rate 18 14 Blood Pressure 132/67 132/67 Pulse Oximetry 98 98 Oxygen Delivery Method Room Air Room Air BMI result Body Mass Index 23.9 Const Other: The patient is an older man who was awake and alert, pleasant and cooperative. He does not appear obviously injured aside from skin wounds to his hands. HENMT Other: No sign of trauma to the head or the face. No raccoon eyes. No sanders sign. Neck Other: No posterior midline C-spine tenderness. Moving his neck easily without discomfort. C-spine is clinically clear. Resp Effort & Inspection: normal respiratory effort Auscultation: clear to auscultation bilaterally Cardio Rate: regular rate Rhythm: regular rhythm Heart sounds: S1 normal heart sound present and S2 normal heart sound present Skin Other: The patient has multiple injuries to the skin of both hands. The right hand: On the right hand the patient has a small flap like laceration on the ulnar side of the wrist. This is about 1 cm in length. On the ulnar side of the hand there is an area of avulsed skin that is about 1.5 cm by 1 cm in size. This area was oozing blood. On the distal right ring finger, on the dorsum near the folds of the D IP joint, is an area of avulsed skin that is about 0.75 mm x 0.75 mm. This wound was also bleeding. The left hand: The patient has 2 small lacerations on the palm. These are both on the ulnar side of the palm and were oozing blood. The larger of the 2 lacerations is more distal. It is about 0.75 mm in length and is an L-shaped laceration with some subcutaneous fat exposed. There is a 2nd laceration that is more proximal on the palm and which is about 5 mm in length and was oozing blood. On the left ring finger there is a laceration on the radial side of the finger that is about 1.5 cm in length. This is a full-thickness laceration but not very deep. This is primarily in the region of the middle phalanx. Just distal to this laceration is a smaller laceration that is about 0.6 mm in length. Neuro Other: The patient is awake and alert with normal mental status. Cranial nerves are grossly intact. He moves his extremities normally. Extrem Other: The patient has multiple skin injuries to both hands but he does not have any bony deformities or other signs of significant trauma other than his skin injuries. Medications Administered Discontinued Medications Generic Name Dose Route Start Last Admin Trade Name Chelle PRN Reason Stop Dose Admin Bacitracin 2 appl 09/08/24 19:01 09/08/24 19:14 Bacitracin Oint 0.9 Gm Packet TOPICAL 09/08/24 19:02 2 appl ONCE ONE Administration Protocol Diphtheria/Tetanus/Acell Pertussis 0.5 ml 09/08/24 16:20 09/08/24 17:18 Diphth,Pertus(Acell),Tet Adult 0.5 Ml Syringe IM 09/08/24 16:21 0.5 ml .ONCE ONE Administration Lidocaine/Epinephrine 10 ml 09/08/24 16:20 09/08/24 17:18 Lidocaine Hcl 1%/Epi 1:100,000 10 Ml Vial INFILTRATI 09/08/24 16:21 10 ml ONCE ONE Administration Lidocaine/Epinephrine 10 ml 09/08/24 17:28 09/08/24 18:38 Lidocaine Hcl 1%/Epi 1:100,000 10 Ml Vial INFILTRATI 09/08/24 17:29 10 ml ONCE ONE Administration Tranexamic Acid 500 mg 09/08/24 17:29 09/08/24 18:37 Tranexamic Acid 1,000 Mg/10 Ml Vial INTRANASAL 09/08/24 17:30 500 mg ONCE ONE Administration Procedures Laceration Laceration 1: Site: hand ( Left ring finger) Side (If applicable): left Size (cm): 15 Description: linear Depth: simple, single layer Local Anesthetic: lidocaine 1% ( with epi) Amount of anesthesia used (mL): 1 Pre-repair: wound explored, irrigated extensively and deep structures intact Skin layer closed with: nylon Size (cm): 5-0 Number of sutures: 2 Laceration 2: Site: hand ( palm) Side (If applicable): left Size (cm): 1 Description: flap Depth: simple, single layer Local Anesthetic: lidocaine 1% ( with epi) Amount of anesthesia used (mL): 1 Pre-repair: wound explored and irrigated extensively Skin layer closed with: nylon Size (cm): 5-0 Number of sutures: 2 Laceration 3: Site: hand ( palm) Side (If applicable): left Size (cm): 0.5 Description: linear Depth: simple, single layer Local Anesthetic: lidocaine 1% ( with epi) Amount of anesthesia used (mL): 1 Pre-repair: wound explored and irrigated extensively Skin layer closed with: nylon Size (cm): 5-0 Number of sutures: 2 Medical Decision Making Medical Decision Making [facility] Narrative: The patient is an 89-year-old male who comes to the emergency room because of skin wounds to both hands after a fall. He is on a baby aspirin daily. No anticoagulation. He did not hit his head in the fall. He has multiple skin injuries to both hands but he does not show any findings on exam physical exam that suggests a fracture. There was no glass or other likely foreign body involved in the injury. X-rays of the hands are unremarkable. the patient was given a tetanus update. Although the patient is not an anticoagulation many of his wounds were bleeding continuously. The bleeding was not heavy but was persistent. The wounds on the right hand were avulsion wounds. Initially I applied Surgicel to the side of the hand and to the wound on the dorsum of the finger. unfortunately the wound on the ulnar side of the hand bled through the Surgicel. I then injected some lidocaine with epinephrine and applied gauze soaked in TXA. This was applied for approximately 20 minutes. When I took down the dressing there was no ongoing bleeding. I then applied Surgicel and redressed the hand. The wounds on the left hand were lacerations rather than avulsions. These wounds were sutured. Wound care instructions were reviewed with the patient and his family. The stitches should be removed in approximately 10 days. With regard to the wounds on the right hand which were managed with Surgicel dressings I advised that they keep the Surgicel in place for 4 days. They were given additional material so that they can change the outer dressings in 2 days. However I recommended that they do not attempt to remove the Surgicel portion of the dressing until 4 days. At that point they should try to slowly and gently soak office Surgicel using cold water. Alternatively they can return to the emergency room if they would like assistance. Discharge Plan Discharge Clinical Impression: Avulsion of skin of hand, Laceration of hand Patient Disposition: Home, Self-Care Additional Instructions: Keep wounds clean and dry. Apply bacitracin or other topical antibiotic to the laceration wounds 2 times a day with Band-Aid changes for the next 2 days. On the right hand leave the dressings intact until Sunday. At that point remove everything but the Surgicel dressings which will be adherent to the wounds. Reapply a nonstick dressing and wrap with gauze. On Sunday you may try to soak off the Surgicel dressings in cold water. My hope is at that point that bleeding will no longer be a problem. At that point you may simply apply bacitracin to the wounds and a Band-Aid or similar dressing. The stitches should be removed at your regular doctor's office in 10 days' time. If any problems return to the emergency department. Prescriptions: No Action sertraline 50 mg tablet 50 mg PO DAILY Qty: 90 0RF aspirin 81 mg tablet,delayed release (DR/EC) 81 mg PO DAILY Referrals: Khanh,Slick Chandler MD [Primary Care Provider] - (Hand wounds) Interventions: ED Discharge Assessment Last Done: 09/08/24 19:14 Discharge Date/Time: 09/08/24 19:15 Print Language: Spanish
[2024-09-08] MEDS: Diphth,Pertus(ACell),Tet Adult 0.5 ML SYRINGE IM (17:18)
[2024-09-08] MEDS: Lidocaine HCl 1%/Epi 1:100,000 10 ML VIAL INFILTRATI ×2 (17:18→18:38)
[2024-09-08] MEDS: Tranexamic Acid 1,000 MG/10 ML VIAL 500 MG INTRANASAL (18:37)
[2024-09-08 18:38] VITALS: BP 132/67; PULSE 61; RESP 18; TEMP 36.8; O2SAT 98
[2024-09-08 19:14] VITALS: BP 132/67; PULSE 60; RESP 14; TEMP 36.8; O2SAT 98
[2024-09-08] MEDS: Bacitracin Oint 0.9 GM PACKET 2 APPL TOPICAL (19:14)
== END 2024-09-08 19:15 | disposition home or self-care (01) ==
PROVIDERS: Emergency Provider Emergency Medicine; PCP Internal Medicine
DX: S61.412A Laceration without foreign body of left hand, initial encounter (principal); S61.214A Laceration without foreign body of right ring finger without damage to nail, initial encounter; S61.511A Laceration without foreign body of right wrist, initial encounter; W18.09XA Striking against other object with subsequent fall, initial encounter; Y93.9 Activity, unspecified; Y92.9 Unspecified place or not applicable; Y99.9 Unspecified external cause status; Z23 Encounter for immunization
CPT/HCPCS: 12001; 12002; 73130; 90471; 90715; 99284; J2004

== ENCOUNTER → 2024-09-08 15:15 | Outpatient (BNV) | payer MEDICARE, OTHER, SELFPAY | PROVIDERS: Emergency Provider Emergency Medicine; PCP Internal Medicine; Visit Provider Radiology Diagnostic Radiology | DX: M79.641 Pain in right hand (principal); M79.642 Pain in left hand | CPT/HCPCS: 73130 ==

== ENCOUNTER 2025-05-27 08:24 | Outpatient (AMB) | payer MEDICARE, OTHER, SELFPAY ==
--- NOTE | 2025-05-27 08:31 | A.OFFPC_ITS ---
Intake Visit Reasons: [id number] Allergies No Known Allergies Allergy (Verified 09/08/24 15:18) Tobacco use date assessed: 07/19/23 Dental Screening Dental Screen Date: 07/19/23 FOR[facility], [facility] Medical History (Updated 09/09/24 @ 00:00 by Ronen Rodriguez) Polymyalgia rheumatica Osteoarthritis of right knee History of alcohol abuse BPH (benign prostatic hyperplasia) Anxiety Tick bite of back Surgical History History of colonoscopy History of hand surgery Hx of cataract surgery H/O arthroscopy of right knee Social History Housing: House Alcohol intake: never Patient Tobacco Use Status: Former Tobacco user Tobacco use type: Cigarette e-Cigarette/Vaping Use: Never Used Second Hand Smoke Exposure: No service: Yes Current occupational status: retired Cognitive needs: No Hearing needs: No Vision needs: Yes Questionnaire Thrive Questionnaire Date Thrive assessed: 01/21/24 AUDIT C Alcohol Use Questionnaire (AUDIT-C) 2. How many drinks containing alcohol do you have on a typical day when you are drinking?: 1 or 2 3. How often do you have six or more drinks on one occasion?: Never Total Score: 0 LENA-7 AMB Questionnaire LENA-7 Date LENA - 7 assessed: 01/21/24 Source: Developed by Drs. Aki Nash, Lazara Arellano, Liu Lilly and colleagues, with an educational isabel from [employer]. Physical exam (Primary Care) Tobacco/Smoking Status: Tobacco use Status Tobacco use date assessed 07/19/23 07/19/23 08:28 Patient Tobacco Use Status Former Tobacco user 09/08/24 15:24 Tobacco use type Cigarette 07/19/23 08:28 e-Cigarette/Vaping Use Never Used 07/19/23 08:28 Thrive Assessment: Date of Thrive Assessment Date Thrive assessed 01/21/24 01/21/24 10:15 Coding
[2025-05-27 08:32] VITALS: BP 124/68; PULSE 75; TEMP 36.3; O2SAT 98; BMI 23.1
--- NOTE | 2025-05-27 08:32 | AM.OFFVISMDC ---
Intake Vital Signs 05/27/25 08:32 Height 5 ft 7 in Weight 147 lb 8 oz BMI 23.1 BP 124/68 Blood Pressure Location Lt brachial Position Sitting Pulse 75 Pulse Source Pulse Oximeter Temp 97.3 F Temp Source Temporal Artery Scan Pulse Oximetry (%) 98 Oxygen Delivery Method Room Air Intake Visit Reasons: [facility] G0439 Allergies No Known Allergies Allergy (Verified 05/27/25 08:34) Medication List - Last Reconciled 05/27/25 by Slick Cassidy MD aspirin 81 mg PO DAILY multivitamin 1 tab PO DAILY sertraline 50 mg PO DAILY HPI SWV G0439 HPI Details [facility]ly [facility], later [facility] gastroenterology Dr. Patten, [place] [facility]. 08/2025 [facility] Medical History (Updated 05/27/25 @ 09:00 by Slick Cassidy MD) Polymyalgia rheumatica Osteoarthritis of right knee History of alcohol abuse BPH (benign prostatic hyperplasia) Anxiety Tick bite of back Surgical History History of colonoscopy History of hand surgery Hx of cataract surgery H/O arthroscopy of right knee Social History Housing: House Alcohol intake: never Patient Tobacco Use Status: Former Tobacco user Tobacco use type: Cigarette e-Cigarette/Vaping Use: Never Used Second Hand Smoke Exposure: No service: Yes Current occupational status: retired Cognitive needs: No Hearing needs: No Vision needs: Yes Questionnaire Medicare Wellness Checkup What is your age?: 81 or older What gender do you identify with?: male During the past 4 weeks, how much have you been bothered by emotional problems such as feeling anxious, depressed, irritable, sad or downhearted, and blue?: not at all During the past 4 weeks, has your physical & emotional health limited your social activities with family, friends, neighbors, or groups?: not at all During the past 4 weeks, how much bodily pain have you generally had?: no pain During the past 4 weeks, was someone available to help you if you needed & wanted help?: yes, as much as I wanted During the past 4 weeks, what was the hardest physical activity you could do for at least 2 minutes?: very heavy Can you get to places out of walking distance without help? (For eg., can you travel alone on buses, taxis or drive your car?): Yes Can you go shopping for groceries or clothes without someone's help?: Yes Can you prepare your own meals?: Yes Can you do your housework without help?: Yes Because of any health problems, do you need the help of another person with your personal care needs such as eating, bathing, dressing or getting around the house?: No Can you handle your own money without help?: Yes During the past 4 weeks, how would you rate your health in general?: excellent During the past 4 weeks how have things been going for you?: very well; could hardly better Are you having difficulties driving your car?: no Do you always fasten your seat belt when you are in a car?: yes, usually During past 4 weeks, have you been bothered by the following: never: Falling or dizzy when standing up, Sexual problems?, Trouble eating well?, Teeth or denture problems?, Problems using the telephone? and Tiredness or fatigue? Have you fallen 2 or more times in the past year?: No Are you afraid of falling?: No Are you a smoker?: no During the past 4 weeks, how many drinks of wine, beer, or other alcoholic beverages did you have?: no alcohol at all Do you exercise for about 20 minutes 3 or more times a week?: yes, most of the time Have you been given information to help with the following?: no: Hazards in your house that might hurt you? and no: Keeping track of your medications? How often do you have trouble taking medicines the way you have been told to take them?: I always take medicine as prescribed How confident are you that you can control & manage most of your health problems?: very confident What is your race?: White PHQ-9 Over the last 2 weeks, how often have you been bothered by any of the following problems? 1. Little interest or pleasure in doing things: not at all 2. Feeling down, depressed, or hopeless: not at all 3. Trouble falling or staying asleep, or sleeping too much: not at all 4. Feeling tired or having little energy: not at all 5. Poor appetite or overeating: not at all 6. Feeling bad about yourself - or that you are a failure or have let yourself or your family down: not at all 7. Trouble concentrating on things, such as reading the newspaper or watching television: not at all 8. Moving or speaking so slowly that other people could have noticed. Or the opposite - being so fidgety or restless that you have been moving around a lot more than usual: not at all 9. Thoughts that you would be better off or of hurting yourself in some way: not at all Total score: 0 Depression Screening Interpretation: Negative Depression Screening Done: Yes 95848 - PHQ-9 Billing: Yes Source: Developed by Drs. Aki Nash, Lazara Arellano, Liu Lilly and colleagues, with an educational isabel from [employer]. Review of Systems Const Denies poor appetite and Denies weakness Eyes Denies no additional complaints ENT Reports Normal hearing present, Denies dizziness, Denies nasal congestion, Denies tinnitus and Denies sore throat Card Denies chest pain, Denies syncope, Denies rapid heart rate and Denies dyspnea Resp Denies cough and Denies dyspnea GI Denies change in stool character, Reports constipation, Denies diarrhea, Denies nausea and Denies vomiting Denies dysuria and Denies urinary frequency Neuro Reports Normal hearing present, Denies confusion, Denies dizziness, Denies syncope and Denies weakness Psych Denies confusion Physical Exam Vital Signs: Last Vital Signs Temp 97.3 F 05/27/25 08:32 Pulse 75 05/27/25 08:32 BP 124/68 05/27/25 08:32 Pulse Ox 98 05/27/25 08:32 Oxygen Delivery Method Room Air 05/27/25 08:32 BMI result Body Mass Index 23.1 Const General: No confusion Orientation/consciousness: No confusion HEENT Other: impcatec cerumen. pedal pulse good, rectal exam negative prostate enlarged Head: Yes normocephalic Ears: external ears normal Face and sinus: Yes normal facial exam Mouth: moist mucous membranes Throat: Yes tonsils normal Eyes Conjunctivae: conjunctivae normal Pupils: Equal, round and reactive pupils present and Pupil accommodation reflex normal Direct Ophthalmoscopy: normal light reflex Neck Neck: No lymphadenopathy Thyroid: Thyroid normal Chest Chest palpation & inspection: normal inspection of the chest Resp Effort & Inspection: normal respiratory effort and no audible wheezes Auscultation: clear to auscultation bilaterally, no crackles, no wheezes and lung sounds not diminished Cardio Rate: regular rate Rhythm: regular rhythm Peripheral pulses: radial pulses present and dorsalis pedis present GI Palpation (GI): no masses Auscultation: normal bowel sounds and normoactive bowel sounds Rectal Exam - Male: Yes deferred Skin General skin exam: no rashes or lesions noted Rashes: no rashes Neuro General: No confusion Cranial nerves: Yes Equal, round and reactive pupils present and Yes Normal hearing present Cognition (Neuro): normal cognition Gait exam (Neuro): Normal gait present Motor exam (neuro): 5/5 motor strength present throughout Deep tendon reflexes (DTR's): Right brachioradialis reflex intensity grade: 2+, Left brachioradialis reflex intensity grade: 2+, Right patellar reflex intensity grade: 2+ and Left patellar reflex intensity grade: 2+ Extrem General: No edema Assessment & Plan Assessment & Plan (1) Medicare annual wellness visit, subsequent: Code(s): Z00.00 - Encounter for general adult medical examination without abnormal findings Plan: Patient is advised to eat healthy, keep well hydrated, keep active and have adequate sleep. (2) BPH (benign prostatic hyperplasia): Code(s): N40.0 - Benign prostatic hyperplasia without lower urinary tract symptoms Qualifiers: Lower urinary tract symptom presence: unspecified whether lower urinary tract symptoms present Qualified Code(s): N40.0 - Benign prostatic hyperplasia without lower urinary tract symptoms Plan: Stable (3) Recurrent major depression: Comment: decline counselling 07/2022 Code(s): F33.9 - Major depressive disorder, recurrent, unspecified Qualifiers: Active/Remission status: in partial remission Qualified Code(s): F33.41 - Major depressive disorder, recurrent, in partial remission Plan: Continue with present medication. Work requested (4) Impacted cerumen of both ears: Code(s): H61.23 - Impacted cerumen, bilateral Plan: ear irrigation done tm intact bilateral Plan History of Present Illness The patient is an 89-year-old male presenting for an annual wellness visit. He has a history of benign prostatic hyperplasia, which has been stable with no significant urinary symptoms other than waking once at night to urinate. The patient also has a history of major depression, currently managed with sertraline, and reports no new symptoms or exacerbations. In August, the patient experienced a fall resulting in hand lacerations, but no head trauma was reported. X-rays of the hands were negative for fractures, but arthritis was noted. A tetanus shot was administered during the ER visit. The patient underwent blood work in January of the previous year, which showed normal blood counts, electrolytes, renal function, and cholesterol levels. B12, folic acid, and thyroid levels were also within normal limits. He engages in regular physical activity, including biking 17 miles three times a week and walking his dog daily. The patient denies any dizziness, nausea, vomiting, or chest pain. He reports no issues with swallowing or bowel movements and has no history of smoking or alcohol use. Health Maintenance - Vaccinations: Tetanus shot administered during ER visit - Exercise: Biking 17 miles three times a week, daily dog walks - Blood work: Normal results in January of the previous year - Preventative care: Annual wellness visit Social History - Exercise: Biking 17 miles three times a week, daily dog walks - Substance Use: Denies smoking and alcohol use Review of Systems - General: Denies dizziness, nausea, vomiting, or fever - Cardiovascular: Denies chest pain or discomfort - Gastrointestinal: Denies swallowing difficulties or bowel movement issues - Genitourinary: Reports nocturia once per night Physical Exam General: Cooperative, healthy appearing, comfortable, no acute distress and well developed Orientation: Patient oriented x3 Limitations: No limitations Head: Normal to inspection Ears: Hearing grossly normal bilaterally, but some ear wax present; one ear is plugged up Nose: Normal external nose present Face and sinus: Normal facial exam Eyes: Appearance normal, both eyes and all related structures; last eye exam was six months ago with Dr. Soto, no vision problems reported Neck: Normal visual inspection and Yes full ROM Respiratory: Normal respiratory effort and able to speak in complete sentences. Clear to auscultation bilaterally Cardiovascular: Regular rate and rhythm. Normal S1 and S2 GI: Normal to inspection. Soft to palpation and nontender Skin: No rashes or lesions noted Neuro: Patient oriented x3 Extremities: Normal to inspection Results - Labs: Normal blood counts, electrolytes, renal function, cholesterol, B12, folic acid, and thyroid levels - Imaging: X-rays of hands negative for fractures, arthritis noted Plan Patient was informed and verbally consented to the use of an ambient scribe for clinic note documentation during this visit. 1. Benign Prostatic Hyperplasia (Bph) The patient will continue with current management as symptoms are stable, with nocturia occurring once per night. 2. Major Depression The patient will continue sertraline therapy with monitoring for any new symptoms or exacerbations. 3. Arthritis The patient is advised to continue regular physical activity to maintain joint function and manage arthritis symptoms. 4. Ear Wax Impaction The patient was advised that ear flushing could be performed to alleviate the impaction, though it was not done during this visit. 5. Preventative Care: Annual Wellness Visit The patient is advised to continue regular wellness visits and maintain current health practices, including exercise and vaccinations. Discussion Notes During the visit, we discussed the importance of maintaining regular wellness visits and continuing current health practices, including exercise and vaccinations. The patient was informed about the stable status of his benign prostatic hyperplasia and major depression, with no new symptoms reported. We also reviewed the management of arthritis through regular physical activity and addressed the ear wax impaction, suggesting a future ear flushing procedure if needed. Patient Instructions - Continue current medications as prescribed. - Maintain regular physical activity, such as biking and walking. - Schedule and attend regular wellness visits. - Consider ear flushing for wax impaction if symptoms persist. - Ensure vaccinations are up to date, including flu and COVID-19 shots. Orders: Orders Comprehensive Met. Panel Today F33.41 - Major depressive disorder, recurrent, in partial remission Free T4 (Free Thyroxine) Today F33.41 - Major depressive disorder, recurrent, in partial remission Vitamin B12 and Folate Today F33.41 - Major depressive disorder, recurrent, in partial remission Magnesium Today F33.41 - Major depressive disorder, recurrent, in partial remission Complete Blood Count Auto Diff Today F33.41 - Major depressive disorder, recurrent, in partial remission Thyroid Stimulating Hormone Today F33.41 - Major depressive disorder, recurrent, in partial remission Lipid Panel Today E78.00 - Pure hypercholesterolemia, unspecified, F33.41 - Major depressive disorder, recurrent, in partial remission Medications: Refilled sertraline 50 mg PO DAILY 90 tabs 2RF F33.41 - Major depressive disorder, recurrent, in partial remission Quality Reporting (2019) Depression/Bipolar (159/160/161/177) PHQ-9: Total score: 0 Coding Level of Care Code Medicare Subsequent (G0439) Est Pt Level 3 (32703) Diagnoses Medicare annual wellness visit, subsequent Z00.00 Benign prostatic hyperplasia, unspecified whether lower urinary tract symptoms present N40.0 Lower urinary tract symptom presence: unspecified whether lower urinary tract symptoms present Recurrent major depressive disorder, in partial remission F33.41 Active/Remission status: in partial remission Impacted cerumen of both ears H61.23 Additional Codes PHQ-9 - 96330 - PHQ-9 Billing: Yes ([id number])
== END 2025-05-27 09:05 | disposition home or self-care (01) ==
LOC: HO.HMCH 08:25
PROVIDERS: PCP Internal Medicine; Visit Provider Internal Medicine
DX: Z00.00 Encounter for general adult medical examination without abnormal findings (principal); H61.23 Impacted cerumen, bilateral; N40.0 Benign prostatic hyperplasia without lower urinary tract symptoms; F33.41 Major depressive disorder, recurrent, in partial remission

== ENCOUNTER → 2025-05-27 08:24 | Outpatient (BNVA) | payer MEDICARE, OTHER, SELFPAY | PROVIDERS: PCP Internal Medicine; Visit Provider Internal Medicine | DX: Z00.00 Encounter for general adult medical examination without abnormal findings (principal); N40.0 Benign prostatic hyperplasia without lower urinary tract symptoms; F33.41 Major depressive disorder, recurrent, in partial remission; H61.23 Impacted cerumen, bilateral; E78.00 Pure hypercholesterolemia, unspecified | CPT/HCPCS: 96127; 99212 ==

== ENCOUNTER 2025-05-28 06:05 | Outpatient (REF) | payer MEDICARE, OTHER, SELFPAY ==
--- OUTSIDE RECORDS SUMMARY | 2025-05-28 06:07 | XMS_ITS | Patient Health Record ---
Author Organization [facility] Address [address] [place] [address] Care Team Providers Care Cloth Folder Machine Name Role Phone Po Slick BRAVO Primary Care Provider Aki Cormier [phone] Reason For Referral No Information Medications Medication SIG (Take, Route, Frequency, Duration) Notes Start Date End Date Status Aspir-81 09/10/2024 09/10/2024 Active Suprep Bowel Prep 17.5g/3.13g/1.6g) per 6 ounces as directed Orally once for 1 dose 11/28/2012 Active Multi Vitamin/Minerals Active Problems Problem Type SNOMED Code ICD Code Onset Dates Problem Status W/U Status Risk Notes Problem Already on aspirin (048747983) Long-term (current) use of aspirin (V58.66) Active confirmed Problem Colon cancer screening (200129211) Colon cancer screening (V76.51) Active confirmed Problem History of adenomatous polyp of colon (119833458) History of adenomatous polyp of colon (V12.72) Active confirmed Plan Of Treatment Future Test Test Name Order Date COLONOSCOPY 11/21/2012 Insurance Providers Payer Name Payer Address Payer Phone Subscriber Number Group Number Insured Name Patient Relationship to Insured Coverage Start Date Coverage End Date MEDICARE OF [place] [address] [place] [id number] ANDRES RASMUSSEN Self - patient is the insured [facility] INDEMNITY [address] [place] [address] [id number] ANDRES RASMUSSEN Self - patient is the insured Medical (General) History Medical History History ICD Code colonoscopy 02/17/2008 was n eg except diverticulosis, but colonoscopies in 1997, 2000, and 2003 had tubular adenomas 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
[2025-05-28 08:40] LABS: MANUAL DIFF FLAG NO
[2025-05-28 08:44] LABS: Hematocrit 43.5 % (42.0-52.0); Hemoglobin 14.8 g/dl (14.0-18.0); Imm Gran Abs Auto 0.02 X10*3/uL (0.00-0.03); Imm Gran Pct Auto 0.4 % (0.0-0.4); Lymphocytes Absolute Auto 1.8 X10*3/uL (1.2-4.9); Mean Corpuscular HGB Conc 34.0 g/dl (31.0-36.0); Mean Corpuscular Hemoglobin 29.6 pg (27.0-33.0); Mean Corpuscular Volume 87.0 fL (80.0-98.0); NRBC Abs Auto 0.000 X10*3/uL (0.0-0.012); NRBC Pct Auto 0.0 /100WBC (0.0-0.2); Platelet Count 232 X10*3/uL (160-400); Red Blood Count 5.00 X10*6/uL (4.60-5.80); White Blood Count 4.8 X10*3/uL (4.8-10.8)
[2025-05-28 09:19] LABS: Alanine Aminotransferase 18 U/L (0-40); Albumin Level 4.6 g/dL (3.5-5.0); Alkaline Phosphatase 52 U/L (39-117); Anion Gap 9 (12-20); Aspartate Amino Transferase 27 U/L (5-37); Blood Urea Nitrogen 24 mg/dL (9-16); Calcium 9.5 mg/dL (8.4-10.2); Carbon Dioxide 27 mmol/L (22-29); Chloride 111 mmol/L (96-108); Cholesterol 178 mg/dL (<200); Estimated Glomerular Filt Rate 49; HDL Cholesterol 56 mg/dL (>40); Magnesium 2.2 mg/dL (1.6-2.6); Potassium 4.5 mmol/L (3.3-5.1); Sodium 142 mmol/L (135-145); Total Protein 7.0 g/dL (6.5-8.0); Triglycerides 69 mg/dL (<150)
[2025-05-28 09:20] LABS: Free T4 (Free Thyroxine) 0.83 ng/dL (0.71-1.85); Thyroid Stimulating Hormone 1.82 uIU/mL (0.32-4.0)
[2025-05-28 09:28] LABS: Folate 14.5 ng/mL (> or = 4.0); Vitamin B12 430 pg/mL (200-900)
== END 2025-05-28 06:06 | disposition home or self-care (01) ==
LOC: HO.HMGCLDS 06:05
PROVIDERS: PCP Internal Medicine; Visit Provider Internal Medicine
DX: F33.41 Major depressive disorder, recurrent, in partial remission (principal); E78.00 Pure hypercholesterolemia, unspecified
CPT/HCPCS: 36415; 80053; 80061; 82607; 82746; 83735; 84439; 84443; 85025